=== PATIENT | female | born 1950 | race Caucasian/White ===

== ENCOUNTER → 2016-11-07 | Outpatient (CLI) | payer BC ==
[~2016-11-07] MED LIST: ASP81CT PO; CALC-80 PO; CHOL10003 PO; ESTR0.5T PO; FEXO1TAB42 PO; IBUP-15 PO; MAGN100T3 PO; MNTL10T PO; MTP25TSR PO; MULT1CAP27 PO; NAPR220T76 PO; NF-ESOM40C PO; PARO10TA21 PO; TRIGOSAMINE PO
--- NOTE | 2016-11-07 20:26 | Diagnostic Imaging Report ---
Bilateral screening mammogram The current study was also evaluated with a Computer Aided Detection (CAD) system. Indication: Screening. No current complaints stated on the questionnaire. COMPARISON: 12/07/13. FINDINGS: The breasts are composed of scattered fibroglandular densities. There are occasional benign-appearing calcifications. Allowing for technique and positional differences, no suspicious change is seen. IMPRESSION: No significant change. ACR BI-RADS Category 2: Benign findings. Result letter will be mailed to the patient. Note: At least 10% of breast cancer is not imaged by mammography. Dictated by: Dictated on workstation # [id number]
== END ==
LOC: RAD 07:18
PROVIDERS: ATTEND Obstetrics & Gynecology Gynecology
DX: Z12.31 Encounter for screening mammogram for malignant neoplasm of breast (principal)
CPT/HCPCS: 77067

== ENCOUNTER → 2017-01-28 | Outpatient (CLI) | payer BC ==
--- NOTE | 2017-01-28 15:48 | Diagnostic Imaging Report ---
Renal ultrasound. INDICATION: Hematuria. FINDINGS: The right kidney is 10.6 cm and the left kidney is 9.8 cm in length. There is no hydroureteronephrosis or focal lesion seen. The urinary bladder appears unremarkable. IMPRESSION: Unremarkable exam. Dictated by: Dictated on workstation # [id number]
== END ==
LOC: RAD 08:39
PROVIDERS: ATTEND Obstetrics & Gynecology Gynecology
DX: R31.1 Benign essential microscopic hematuria (principal)
CPT/HCPCS: 76770

== ENCOUNTER 2017-04-23 15:04 | Outpatient (CLI) | payer BC ==
[~2017-04-23] VITALS: Ht 167.6 cm; Wt 80.7 kg
[~2017-04-23 15:04] MED LIST changes: +methylPREDNISolone 80 MG/ML (DEPO MEDROL) VIAL ONE
[2017-04-23 15:17] VITALS: BP 136/59
[2017-04-23 15:42] VITALS: BP 146/69
--- NOTE | 2017-04-27 16:33 | OPERATIVE REPORT ---
DATE OF SERVICE: 04/23/2017 DIAGNOSIS: Lumbar radiculopathy. PROCEDURE: Fluoroscopic guided interlaminar epidural steroid injection. PROCEDURE IN DETAIL: After obtaining informed consent from the patient, the patient's chart was reviewed. The patient was then brought to the procedure room and placed in the prone position. A timeout was performed. The back was prepped with antiseptic solution and under fluoro guidance, the patient's lumbar spine was identified at the level of L4-L5. The L4-L5 vertebra was identified with fluoro guidance and approximately 2 mL of 1.5% lidocaine solution was used to anesthetize the skin directly down to the pedicle of the L4-L5 and under fluoroscopic guidance, the tract was anesthetized up to the interlaminar space and the ligamentum flavum. This needle was withdrawn. Then, a 20-gauge 3.5 inch Tuohy needle was then directed following the same tract that was anesthetized with the spinal needle. Using loss of resistance, the epidural space was identified and then the syringe was switched for contrast solution which was injected, approximately 1 mL. After secondary confirmation of epidural access, another syringe was placed and 80 mg of Depo-Medrol was injected. The Tuohy needle was then flushed out with approximately 2 mL of the normal saline used from the loss of resistance syringe. Band-Aids were applied to all the procedure sites. The patient tolerated the procedure well and was taken to the recovery room in stable condition. COMPLICATIONS: None. Job ID: [id number] DocumentID: [id number] Dictated Date: 04/27/2017 09:31:55 Field Operations Farm Manager Date: 04/27/2017 16:32:03 Dictated By: MADELYN CASSIDY DO
--- NOTE | 2017-05-06 11:24 | HISTORY AND PHYSICAL ---
DATE OF SERVICE: 04/23/2017 CHIEF COMPLAINT: Low back pain. HISTORY OF PRESENT ILLNESS: A 66-year-old female presents today with gradual onset low back pain, located mostly in the right side. Pain is made worse by sleeping, walking and sitting. The patient presents today for LESI of L4-L5. ALLERGIES: CODEINE. CURRENT MEDICATIONS: Vitamin D3 2000 units daily, Cetirizine 10 mg 1 tablet daily, Meloxicam 15 mg daily, omeprazole 40 mg daily, Restasis 0.05% 2 drops in both eyes b.i.d., tramadol 50 mg 1 tablet by mouth p.r.n., 50 mcg 1 puff inhale p.r.n., Lovastatin hydrochlorothiazide 50/12.5 mg 1 tablet by mouth daily, fish oil 120/180 mg 1 tablet by mouth b.i.d., magnesium oxide 300 mg 1 tablet by mouth daily, Simbrinza 1/0.2% drops both eyes b.i.d. REVIEW OF SYSTEMS: HEENT: Negative for hearing loss, hoarseness. GENITOURINARY: Declined. ENDOCRINE: Denies any excessive thirst, increased urination or temperature intolerance. CONSTITUTIONAL: Denies any weight loss, fever or decreased appetite. RESPIRATION: Denies cough or shortness of breath. MUSCULOSKELETAL: Positive for joint pain. Positive for osteoporosis. NEUROLOGICAL: Positive for numbness and tingling in the lower extremity. PHYSICAL EXAMINATION: VITAL SIGNS: Height 66 inches, weight 154. GENERAL: The patient is a female, appearing healthy, well groomed, well nourished, without distress or deformity. HEENT: Extraocular muscles are intact. EXTREMITIES: Upper and lower extremities are normal in color, touch and texture. Lumbar spine range of motion has decreased and the patient states that the last injection left her with some pain, has infrequent episodes of left hip pain. MUSCULOSKELETAL: Major joint groups were examined and found to be within normal limits. Reflexes of patellar and Achilles were bilaterally within normal limits. Sensory: No hypo or hyperesthesia. IMPRESSION: 1. Lumbar degenerative disc disease. 2. Lumbar radiculopathy. TREATMENT AND PLAN: Continue with L4-5 intralaminar epidural steroid injection. Job ID: [id number] DocumentID: [id number] Dictated Date: 05/05/2017 14:37:48 Enrollment Services Vice President Date: 05/05/2017 16:56:30 Dictated By: MADELYN CASSIDY DO
== END 2017-04-23 15:44 | disposition home or self-care (01) ==
LOC: CARD 15:04
PROVIDERS: ATTEND Pain Medicine Interventional Pain Medicine
DX: M54.16 Radiculopathy, lumbar region (principal); M81.0 Age-related osteoporosis without current pathological fracture; Z79.899 Other long term (current) drug therapy
CPT/HCPCS: 62323

== ENCOUNTER → 2017-08-25 | Outpatient (CLI) | payer BC ==
[~2017-08-25] MED LIST changes: +GADOBUTROL 7.5 MMOL/7.5 ML (GADAVIST) VIAL IV ONE; -methylPREDNISolone 80 MG/ML (DEPO MEDROL) VIAL ONE
--- NOTE | 2017-08-25 18:21 | Diagnostic Imaging Report ---
PROCEDURE: MR imaging of the brain with and without contrast. TECHNIQUE: Multiplanar, multisequence MR imaging of the brain was performed with and without contrast. INDICATION: Intracranial mass diagnosed in September 2014. Study is performed for followup. COMPARISON: Correlation is made with prior MRI brain from 06/20/2016. FINDINGS: No diffusion restriction is identified. The normal expected flow-voids within the carotid siphons are seen. Mild periventricular white matter changes are similar to prior exam. No acute intra-axial or extra-axial hemorrhage is identified. The corpus callosum is unremarkable. The sella and parasellar structures are unremarkable. The enhancing nodule noted along the left posterior parietal convexity appears stable at 7 mm and remains most compatible with a meningioma. No new enhancing lesion is identified. IMPRESSION: Stable pre-and postcontrast MRI of the brain when compared with prior study from 06/20/2016. The extra-axial enhancing lesion along the left posterior parietal convexity is stable and remains most suggestive of a meningioma. Dictated by: Dictated on workstation # [id number]
== END ==
LOC: RAD 16:41
PROVIDERS: ATTEND Family Medicine
DX: D32.0 Benign neoplasm of cerebral meninges (principal)
CPT/HCPCS: 70553

== ENCOUNTER → 2017-09-10 | Outpatient (CLI) | payer BC ==
[~2017-09-10] MED LIST changes: -GADOBUTROL 7.5 MMOL/7.5 ML (GADAVIST) VIAL IV ONE
--- NOTE | 2017-09-10 13:28 | Diagnostic Imaging Report ---
INDICATION: Osteoporosis. COMPARISON: No prior studies are available for comparison. FINDINGS: Bone mineral analysis of the lumbar spine and both hips was performed. Bone mineral density of the lumbar spine L2-L4 is 0.759 with T score of -3.7. Bone mineral density of left femoral neck 0.695 with T score -2.5. Bone mineral density right femoral neck 0.664 with T score -2.7. IMPRESSION: Osteoporosis of the lumbar spine as well as the right femoral neck. There is borderline osteopenia/osteoporosis of the left femoral neck. Dictated by: Dictated on workstation # [id number]
== END ==
LOC: RAD 08:38
PROVIDERS: ATTEND Family Medicine
DX: M81.0 Age-related osteoporosis without current pathological fracture (principal); E55.9 Vitamin D deficiency, unspecified; M85.80 Other specified disorders of bone density and structure, unspecified site
CPT/HCPCS: 77080

== ENCOUNTER → 2018-02-04 | Outpatient (CLI) | payer BC ==
--- NOTE | 2018-02-04 18:52 | Diagnostic Imaging Report ---
INDICATION: Routine screening. Comparison is made with prior mammogram from 11/07/2016 and 12/07/2013. 2-D and 3-D bilateral screening mammography was performed with CAD. The current study was also evaluated with a Computer Aided Detection (CAD) system. FINDINGS: Scattered fibroglandular densities are identified bilaterally. The overall breast parenchymal pattern appears stable. No dominant mass or malignant-appearing microcalcifications are seen. The axillae are unremarkable. IMPRESSION: No mammographic features suspicious for malignancy are identified. ACR BI-RADS Category 1: Negative. Result letter will be mailed to the patient. Note: At least 10% of breast cancer is not imaged by mammography. Dictated by: Dictated on workstation # [id number]
== END ==
LOC: RAD 07:53
PROVIDERS: ATTEND Nurse Practitioner
DX: Z12.31 Encounter for screening mammogram for malignant neoplasm of breast (principal)
CPT/HCPCS: 77067

== ENCOUNTER → 2018-02-04 | Outpatient (CLI) | payer BC | LOC: CARD 07:56 | PROVIDERS: ATTEND Family Medicine | DX: R01.1 Cardiac murmur, unspecified (principal) | CPT/HCPCS: 93306 ==

== ENCOUNTER → 2018-04-23 | Outpatient (CLI) | payer BC ==
[~2018-04-23] VITALS: Ht 167.6 cm; Wt 80.7 kg
[~2018-04-23] MED LIST changes: +DENOSUMAB 60 MG/1 ML (PROLIA) SQ ONE
[2018-04-23 15:25] VITALS: BP 128/77
== END ==
LOC: SDC 14:23
PROVIDERS: ATTEND Family Medicine
DX: M81.0 Age-related osteoporosis without current pathological fracture (principal)
CPT/HCPCS: 96372

== ENCOUNTER → 2018-08-26 | Outpatient (CLI) | payer MEDICARE, OTHER ==
[~2018-08-26] MED LIST changes: -DENOSUMAB 60 MG/1 ML (PROLIA) SQ ONE; +GADOBUTROL 7.5 MMOL/7.5 ML (GADAVIST) VIAL IV ONE
[2018-08-26 09:41] LABS: BUN/CREATININE RATIO 20; CREATININE SERUM 0.83 MG/DL (0.60-1.30); GFR ESTIMATED > 60
--- NOTE | 2018-08-26 11:40 | Diagnostic Imaging Report ---
PROCEDURE: MR imaging of the brain with and without contrast. TECHNIQUE: Multiplanar, multisequence MR imaging of the brain was performed with and without contrast. INDICATION: Followup meningioma. COMPARISON: Correlation is made with prior MRI of the brain from 08/25/2017. FINDINGS: Previously noted enhancing nodule along the left posterior parietal convexity is stable at approximately 6-7 mm. No new area of enhancement is seen. Ventricles and sulci are within normal limits. Corpus callosum is unremarkable. The sella and parasellar structures are unremarkable. No acute intra-axial or extra-axial hemorrhage is detected. No diffusion restriction is identified. Normal expected flow-voids within the carotid siphons are seen. IMPRESSION: Stable MRI of the brain with and without contrast since examination one year earlier. Extra-axial enhancing nodule along the left posterior parietal convexity is stable and remains most suggestive of a meningioma. Dictated by: Dictated on workstation # [id number]
== END ==
LOC: RAD 09:11
PROVIDERS: ATTEND Family Medicine
DX: D32.9 Benign neoplasm of meninges, unspecified (principal)
CPT/HCPCS: 36415; 70553; 82565; 84520

== ENCOUNTER → 2018-12-01 | Outpatient (CLI) | payer MEDICARE, OTHER ==
[~2018-12-01] VITALS: Ht 167.6 cm; Wt 80.7 kg
[~2018-12-01] MED LIST changes: +DENOSUMAB 60 MG/1 ML (PROLIA) SQ SCH; -GADOBUTROL 7.5 MMOL/7.5 ML (GADAVIST) VIAL IV ONE
[2018-12-01 11:10] VITALS: BP 99/57
== END ==
LOC: SDC 11:01
PROVIDERS: ATTEND Family Medicine
DX: M81.0 Age-related osteoporosis without current pathological fracture (principal)
CPT/HCPCS: 96372

== ENCOUNTER → 2019-05-24 | Outpatient (CLI) | payer MEDICARE, OTHER ==
[~2019-05-24] MED LIST changes: +DENOSUMAB 60 MG/1 ML (PROLIA) SQ ONE; -DENOSUMAB 60 MG/1 ML (PROLIA) SQ SCH
[2019-05-24 10:06] VITALS: BP 127/53
== END ==
LOC: SDC 10:01
PROVIDERS: ATTEND Family Medicine
DX: M81.0 Age-related osteoporosis without current pathological fracture (principal)
CPT/HCPCS: 96372

== ENCOUNTER → 2019-08-24 | Outpatient (CLI) | payer MEDICARE, OTHER ==
[~2019-08-24] MED LIST changes: -DENOSUMAB 60 MG/1 ML (PROLIA) SQ ONE; +GADOBUTROL 10 MMOL/10 ML (GADAVIST) VIAL IV ONE
--- NOTE | 2019-08-24 09:09 | Diagnostic Imaging Report ---
CLINICAL INDICATION: Patient with meningioma. Follow-up exam. EXAM: MRI of the brain performed without and with 7 cc of Gadavist IV contrast. Sequences include axial DWI, ADC map, axial gradient echo, axial T2, axial FLAIR, axial T1, axial T1 post IV contrast, coronal T1 fat-sat post IV contrast, and sagittal T1 post IV contrast. COMPARISON: MRI of the brain performed without and with IV contrast dated 08/26/2018. FINDINGS: Stable 6 mm dural-based avidly enhancing nodular lesion involving the high left parietal convexity region near the vertex most likely representing meningioma. There are no other areas of abnormal IV contrast enhancement. There is no evidence of acute cerebral infarct, intracranial hemorrhage, or gross mass effect. The brain parenchymal volume appears appropriate for patient's age. Again seen focal patchy areas of high T2 signal white matter changes involving both cerebral hemispheres, likely representing chronic small vessel ischemic disease. There is normal bojorquez-white matter distinction. There is no significant midline shift or herniation. The kiana of Nino vascular structures show no gross abnormality as visualized. The pituitary gland, sella, and suprasellar regions are unremarkable as visualized. There is no evidence of hydrocephalus. The basal cisterns are unremarkable. The skull, extracranial soft tissue, and orbits are unremarkable. There is minimal mucosal thickening involving the ethmoid sinus. Temporal bones show no significant abnormality. IMPRESSION: 1: Stable 6 mm meningioma seen along the high left parietal convexity region of the vertex. 2: Stable mild age related brain parenchymal changes with no acute intracranial finding. 3: Mild ethmoid sinus disease. Dictated by: Dictated on workstation # [id number]
== END ==
LOC: RAD 08:04
PROVIDERS: ATTEND Family Medicine
DX: D32.0 Benign neoplasm of cerebral meninges (principal); J32.2 Chronic ethmoidal sinusitis; G93.89 Other specified disorders of brain
CPT/HCPCS: 70553

== ENCOUNTER 2019-11-23 10:31 | Outpatient (CLI) | payer MEDICARE, OTHER ==
[~2019-11-23 10:31] MED LIST changes: -GADOBUTROL 10 MMOL/10 ML (GADAVIST) VIAL IV ONE
[2019-11-23] MEDS ORDERED: DENOSUMAB 60 MG/1 ML (PROLIA) SQ NR (11:07)
[2019-11-23 11:25] VITALS: BP 121/61
== END 2019-11-23 11:28 | disposition home or self-care (01) ==
LOC: SDC 10:31
PROVIDERS: ATTEND Family Medicine
DX: M81.0 Age-related osteoporosis without current pathological fracture (principal)
CPT/HCPCS: 96372

== ENCOUNTER → 2020-03-27 | Outpatient (CLI) | payer MEDICARE, OTHER ==
--- NOTE | 2020-03-27 09:54 | Diagnostic Imaging Report ---
INDICATION: Postmenopausal state, osteoporosis COMPARISON: 09/10/2017 FINDINGS: AP Spine L1-L4: [BMD (g/cm2): 0.939] [T-Score: -2.2] [Z-Score: -0.9] [BMD Previous: 0.759] [BMD % Change: 23.7] LT Hip Neck: [BMD (g/cm2): 0.714] [T-Score: -2.3] [Z-Score: -1.0] LT Hip Total: [BMD (g/cm2):.700] [T-Score:-2.4] [Z-Score: -1.3] [BMD Previous: 0.641] [BMD % Change: 9.2] RT Hip Neck: [BMD (g/cm2):0.673] [T-Score:-2.6] [Z-Score:-1.3] RT Hip Total: [BMD (g/cm2):0.696] [T-score:-2.5] [Z-Score:-1.4] [BMD Previous:0.654] [BMD % Change:6.4] *Indicates significant change from prior examination based on 95% confidence level. World Health Organization criteria for BMD interpretation classify patients as Normal (T-score at or above -1.0), Osteopenic (T-score between -1.0 and -2.5) or Osteoporotic (T-score at or below -2.5). LIMITATIONS AND MODIFICATION: None. FRACTURE RISK (FRAX SCORE): The ten year probability of (%): Major Osteoporotic Fracture: [15.1] Hip Fracture: [3.8] IMPRESSION: 1. Osteoporosis. 2. No significant change in bone mineral density since prior examination. 3. See below National Osteoporosis Foundation guidelines on when to potentially initiate pharmacologic therapy. Based on the National Osteoporosis Foundation Guidelines, pharmacologic treatment should be initiated in any of the following, unless clinical conditions suggest otherwise: * Any patient with prior fragility fracture of the hip or vertebrae. A spine fracture indicates 5X risk for subsequent spine fracture and 2X risk for subsequent hip fracture. * Osteoporosis (T-score <-2.5). * Postmenopausal women and men age 50 and older with low bone mass/osteopenia (T-score between -1.0 and -2.5) by DXA and 10-year major osteoporotic fracture greater than 20% or a 10-year probability of hip fracture greater than 3%. These fracture risks are supplied above in the FRAX score, if applicable. * Clinician judgement and/or patient preferences may indicate treatment for people with 10-year fracture probabilities above or below these levels. Dictated by: Dictated on workstation # [id number]
== END ==
LOC: RAD 08:55
PROVIDERS: ATTEND Family Medicine
DX: M81.0 Age-related osteoporosis without current pathological fracture (principal); Z78.0 Asymptomatic menopausal state
CPT/HCPCS: 77080

== ENCOUNTER → 2020-06-20 | Outpatient (CLI) | payer MEDICARE, OTHER ==
[~2020-06-20] VITALS: Ht 167 cm; Wt 72.7 kg
[~2020-06-20] MED LIST changes: +DENOSUMAB 60 MG/1 ML (PROLIA) SQ SCH
[2020-06-20 10:10] VITALS: BP 126/65
== END ==
LOC: SDC 09:29
PROVIDERS: ATTEND Family Medicine
DX: M81.0 Age-related osteoporosis without current pathological fracture (principal)
CPT/HCPCS: 96372

== ENCOUNTER → 2020-10-23 | Outpatient (CLI) | payer MEDICARE, OTHER ==
[~2020-10-23] MED LIST changes: -DENOSUMAB 60 MG/1 ML (PROLIA) SQ SCH; +GADOBUTROL 10 MMOL/10 ML (GADAVIST) VIAL IV ONE; +GADOBUTROL 7.5 MMOL/7.5 ML (GADAVIST) VIAL IV ONE
--- NOTE | 2020-10-23 11:54 | Diagnostic Imaging Report ---
PROCEDURE: MR imaging of the brain with and without contrast. TECHNIQUE: Multiplanar, multisequence MR imaging of the brain was performed with and without contrast. INDICATION: Meningioma follow-up. COMPARISON: MRI brain without and with IV contrast 08/24/2019. FINDINGS: Mild nonspecific T2 hyperintensities in the supratentorial white matter compatible with chronic small vessel ischemic change are stable. Extra-axial enhancing mass along the superior left parietal lobe continues to measure up to 0.6 cm. No abnormal signal in the adjacent parenchyma. No new abnormal intracranial signal or enhancement. No restricted water diffusion. No hemosiderin deposition or evidence of intracranial hemorrhage. Normal morphology including the major midline structures, sella, posterior fossa and cerebellar pontine angle. No hydrocephalus or extra-axial fluid collections. Normal intracranial flow voids. Postoperative changes in the globes. Mild mucosal thickening in the ethmoid sinuses is stable. The mastoids are clear. Normal bone marrow signal. IMPRESSION: 1. Stable 0.6 cm extra-axial enhancing mass consistent with a benign meningioma overlying the left parietal lobe. 2. Mild chronic small vessel ischemic change is unchanged. 3. Mild mucosal thickening in ethmoid sinuses is stable. No air-fluid levels. Dictated by: Dictated on workstation # [id number]
== END ==
LOC: RAD 10-10 09:30
PROVIDERS: ATTEND Family Medicine
DX: D32.9 Benign neoplasm of meninges, unspecified (principal)
CPT/HCPCS: 70553

== ENCOUNTER 2020-12-19 10:00 | Outpatient (CLI) | payer MEDICARE, OTHER ==
[~2020-12-19 10:00] MED LIST changes: -GADOBUTROL 10 MMOL/10 ML (GADAVIST) VIAL IV ONE; -GADOBUTROL 7.5 MMOL/7.5 ML (GADAVIST) VIAL IV ONE
[2020-12-19 10:15] VITALS: BP 142/69
[2020-12-19] MEDS ORDERED: DENOSUMAB 60 MG/1 ML (PROLIA) SQ SCH (10:30)
== END 2020-12-19 10:51 | disposition home or self-care (01) ==
LOC: SDC 10:00
PROVIDERS: ATTEND Family Medicine
DX: M81.0 Age-related osteoporosis without current pathological fracture (principal)
CPT/HCPCS: 96372

== ENCOUNTER 2021-08-01 12:09 | Inpatient (IN) | payer MEDICARE, OTHER ==
[~2021-08-01] VITALS: Ht 167.7 cm; Wt 71.2 kg
[2021-08-01] MEDS ORDERED: LACTATED RINGERS 1,000 ML IV SCH (12:45)
[2021-08-01 13:18] LABS: BASOPHILS # (AUTO) 0.1 10^3/uL (0.0-0.1); BASOPHILS % (AUTO) 1 % (0-10); EOSINOPHILS # (AUTO) 0.3 10^3/uL (0.0-0.3); EOSINOPHILS % (AUTO) 3 % (0-10); HEMATOCRIT 34 % (35-52); HEMOGLOBIN 11.4 g/dL (11.5-16.0); LYMPHOCYTES # (AUTO) 0.9 10^3/uL (1.0-4.0); LYMPHOCYTES % (AUTO) 11 % (12-44); MEAN CORPUSCULAR HEMOGLOBIN 30 pg (25-34); MEAN CORPUSCULAR HGB CONC 33 g/dL (32-36); MEAN CORPUSCULAR VOLUME 90 fL (80-99); MEAN PLATELET VOLUME 9.6 fL (9.0-12.2); MONOCYTES # (AUTO) 0.7 10^3/uL (0.0-1.0); MONOCYTES % (AUTO) 8 % (0-12); NEUTROPHILS # (AUTO) 6.2 10^3/uL (1.8-7.8); NEUTROPHILS % (AUTO) 76 % (42-75); PLATELET COUNT 299 10^3/uL (130-400); WHITE BLOOD COUNT 8.2 10^3/uL (4.3-11.0)
--- NOTE | 2021-08-01 13:22 | Diagnostic Imaging Report ---
INDICATION: Weakness. COMPARISON: 08/01/2015. TECHNIQUE: Single frontal radiograph of the chest dated 08/01/2021. FINDINGS: The cardiac silhouette is within normal limits in size. No significant pulmonary vascular congestion. The lungs are clear. No pleural effusion. No pneumothorax. No acute osseous abnormality. IMPRESSION: Stable examination without acute cardiopulmonary abnormality. Dictated by: Dictated on workstation # [id number]
--- NOTE | 2021-08-01 13:27 | ED GI ---
General Chief Complaint: Abdominal/GI Problems Stated Complaint: DEHYDRATION/BODYACHES/STOMACH PAIN/BACK PAIN/V/D Nursing Triage Note: PT AMB TO RM 5 WITH COMPLAINT OF DIARRHEA, ABD PAIN. STATES HAS BEEN SEEN AT [facility] TWICE THIS WEEK AND DIAGNOSED WITH UTI. HAD COVID 2 WEEKS AGO. Source of Information: Patient Exam Limitations: No Limitations History of Present Illness Date Seen by Provider: Aug 01, 2021 Time Seen by Provider: 13:27 Initial Comments To ER with epigastric pain over the past 4 days. She was seen at [facility] on 07/28/2021 when this started. They diagnosed her with urinary tract infection. The pain is primarily epigastric. Nothing made it better and nothing made it worse. She is had nausea and poor food intake because of it. 2 weeks ago she had a positive home Covid test and has seemingly recovered from that. She is been having nausea abdominal pain and diarrhea since Thursday. Timing/Duration: 3-4 Days Severity/Quality: Severe, Aching Location: Epigastric Radiation: No Radiation Activities at Onset: None Allergies and Home Medications Allergies Coded Allergies: IV Dye, Iodine Containing Contrast (Unverified Allergy, Mild, HIVES, 01/09/09) Patient Home Medication List Home Medication List Reviewed: Yes Aspirin (Aspirin 81 Mg Chew Tab) 81 Mg Chew, 81 MG PO DAILY, (Reported) Entered as Reported by: YVETTE HAGAN on 08/21/102001 Calcium Carbonate/Vitamin D3 (Calcium 600 + D Caplet) 1 Each Tablet, 2 EACH PO DAILY, (Reported) Entered as Reported by: YVETTE HAGAN on 08/21/101955 Cholecalciferol (Vitamin D) 1,000 Unit Tablet, 1,000 UNIT PO DAILY, (Reported) Entered as Reported by: YVETTE HAGAN on 08/21/101955 Esomeprazole Mag Trihydrate (Nexium) 40 Mg Capsule.dr, 40 MG PO DAILY, (Reported) Entered as Reported by: YVETTE HAGAN on 08/21/101955 Estradiol (Estradiol) 0.5 Mg Tablet, 0.5 MG PO DAILY, (Reported) Entered as Reported by: YVETTE HAGAN on 08/21/101955 Fexofenadine Hcl/Pseudoephedr (Dior-D 24 Hour Tablet) 1 Tab.sr .24 H Tab.sr.24h, 1 EACH PO DAILY, (Reported) Entered as Reported by: YVETTE HAGAN on 08/21/101955 Ibuprofen (Ibuprofen M) 200 Mg Tablet, 200 MG PO PRN, (Reported) Entered as Reported by: YVETTE HAGAN on 08/21/102001 Magnesium Amino Acid Chelate (Magnesium) 100 Mg Tablet, 100 MG PO DAILY, (Reported) Entered as Reported by: YVETTE HAGAN on 08/21/102001 Metoprolol Succinate (Toprol Xl) 25 Mg Tab, 25 MG PO DAILY, (Reported) Entered as Reported by: YVETTE HAGAN on 08/21/102001 Montelukast Sodium (Singulair 10 Mg) 10 Mg Tablet, 10 MG PO DAILY PRN, (Reported) Entered as Reported by: YVETTE HAGAN on 08/21/101955 Multivitamins (Multivitamins) 1 Each Capsule, 1 EACH PO DAILY, (Reported) Entered as Reported by: YVETTE HAGAN on 08/21/102001 Naproxen Sodium (Aleve) 220 Mg Tablet, 2 TAB PO DAILY, (Reported) Entered as Reported by: YVETTE HAGAN on 08/21/102001 Paroxetine Hcl (Paroxetine Hcl) 10 Mg Tablet, 10 MG PO DAILY, (Reported) Entered as Reported by: YVETTE HAGAN on 08/21/101955 [Trigosamine] , 2 TAB PO DAILY, (Reported) Entered as Reported by: YVETTE HAGAN on 08/21/102001 Review of Systems Review of Systems Constitutional: see HPI EENTM: No Symptoms Reported Respiratory: No Symptoms Reported Cardiovascular: No Symptoms Reported Gastrointestinal: See HPI, Abdominal Pain, Diarrhea, Nausea Genitourinary: No Symptoms Reported Musculoskeletal: no symptoms reported Skin: no symptoms reported Psychiatric/Neurological: No Symptoms Reported Endocrine: No Symptoms Reported Past Ccxrlol-Cislrc-Zjwcgs Hx Patient Social History Tobacco Use?: No Use of E-Cig and/or Vaping dev: No Substance use?: No Alcohol Use?: No Pt feels they are or have been: No Immunizations Up To Date Influenza Vaccine Up-to-Date: Yes; Up-to-Date First/Initial COVID19 Vaccinat: JULY 2020 Second COVID19 Vaccination [place]: AUGUST 2020 COVID19 Vaccine Regional Driver: [place] Past Medical History Reproductive Disorders: No Physical Exam Vital Signs Vital Signs - First Documented 08/01/21 12:22 Temp 36.3 Pulse 76 Resp 25 B/P (MAP) 125/69 (87) Pulse Ox 96 O2 Delivery Room Air Capillary Refill : Less Than 3 Seconds Height/Weight/BMI Height: 5'6.00" Weight: 178lbs. 0.0oz. 80.717203ec; 25.00 BMI Method: General Appearance: WD/WN, no apparent distress HEENT: PERRL/EOMI, normal ENT inspection Neck: non-tender, full range of motion Respiratory: no respiratory distress, no accessory muscle use Cardiovascular: regular rate, rhythm, no murmur Gastrointestinal: normal bowel sounds, soft, tenderness (Tenderness to p alpation) Extremities: normal range of motion, non-tender (GP for his) Neurologic/Psychiatric: alert, normal mood/affect, oriented x 3 Skin: normal color, warm/dry Progress/Results/Core Measures Results/Orders Lab Results Laboratory Tests Test 08/01/21 13:11 08/01/21 13:59 Range/Units White Blood Count 8.2 4.3-11.0 10^3/uL Red Blood Count 3.81 3.80-5.11 10^6/uL Hemoglobin 11.4 L 11.5-16.0 g/dL Hematocrit 34 L 35-52 % Mean Corpuscular Volume 90 80-99 fL Mean Corpuscular Hemoglobin 30 25-34 pg Mean Corpuscular Hemoglobin Concent 33 32-36 g/dL Red Cell Distribution Width 12.9 10.0-14.5 % Platelet Count 299 130-400 10^3/uL Mean Platelet Volume 9.6 9.0-12.2 fL Immature Granulocyte % (Auto) 1 % Neutrophils (%) (Auto) 76 H 42-75 % Lymphocytes (%) (Auto) 11 L 12-44 % Monocytes (%) (Auto) 8 0-12 % Eosinophils (%) (Auto) 3 0-10 % Basophils (%) (Auto) 1 0-10 % Neutrophils # (Auto) 6.2 1.8-7.8 10^3/uL Lymphocytes # (Auto) 0.9 L 1.0-4.0 10^3/uL Monocytes # (Auto) 0.7 0.0-1.0 10^3/uL Eosinophils # (Auto) 0.3 0.0-0.3 10^3/uL Basophils # (Auto) 0.1 0.0-0.1 10^3/uL Immature Granulocyte # (Auto) 0.1 0.0-0.1 10^3/uL Prothrombin Time 14.7 12.2-14.7 SEC INR Comment 1.1 0.8-1.4 Sodium Level 139 135-145 MMOL/L Potassium Level 3.3 L 3.6-5.0 MMOL/L Chloride Level 103 98-107 MMOL/L Carbon Dioxide Level 23 21-32 MMOL/L Anion Gap 13 5-14 MMOL/L Blood Urea Nitrogen 19 H 7-18 MG/DL Creatinine 1.07 0.60-1.30 MG/DL Estimat Glomerular Filtration Rate 56 BUN/Creatinine Ratio 18 Glucose Level 99 70-105 MG/DL Calcium Level 10.6 H 8.5-10.1 MG/DL Corrected Calcium 10.9 H 8.5-10.1 MG/DL Total Bilirubin 0.6 0.1-1.0 MG/DL Aspartate Amino Transf (AST/SGOT) 18 5-34 U/L Alanine Aminotransferase (ALT/SGPT) 20 0-55 U/L Alkaline Phosphatase 78 40-136 U/L C-Reactive Protein High Sensitivity 15.43 H 0.00-0.50 MG/DL Total Protein 7.1 6.4-8.2 GM/DL Albumin 3.6 3.2-4.5 GM/DL Lipase 24 8-78 U/L Urine Color YELLOW Urine Clarity CLEAR Urine pH 7.0 5-9 Urine Specific Traphill <=1.005 1.016-1.022 Urine Protein NEGATIVE NEGATIVE Urine Glucose (UA) NEGATIVE NEGATIVE Urine Ketones NEGATIVE NEGATIVE Urine Nitrite NEGATIVE NEGATIVE Urine Bilirubin NEGATIVE NEGATIVE Urine Urobilinogen 0.2 < = 1.0 MG/DL Urine Leukocyte Esterase 2+ H NEGATIVE Urine RBC (Auto) 1+ H NEGATIVE Urine RBC RARE /HPF Urine WBC 10-25 H /HPF Urine Squamous Epithelial Cells 5-10 /HPF Urine Crystals NONE /LPF Urine Bacteria FEW H /HPF Urine Casts NONE /LPF Urine Mucus NEGATIVE /LPF Urine Culture Indicated YES My Orders Orders - HAFSA FERNANDEZ [employer] Cbc With Automated Diff (08/01/21 12:37) Comprehensive Metabolic Panel (08/01/21 12:37) Ua Culture If Indicated (08/01/21 12:37) Ed Iv/Invasive Line Start (08/01/21 12:37) Chest 1 View, Ap/Pa Only (08/01/21 12:37) Hs C Reactive Protein (08/01/21 12:37) Lactated Ringers (Lr 1000 Ml Iv Solution (08/01/21 12:45) Lipase (08/01/21 12:37) Protime With Inr (08/01/21 12:37) Ct Abdomen/Pelvis Wo (08/01/21 13:27) Antacid Suspension (Mylanta Suspension (08/01/21 14:15) Lidocaine 2% Viscous 15 Ml (Xylocaine Vi (08/01/21 14:15) Urine Culture (08/01/21 13:59) Ceftriaxone 1 Gm Pre-Mix (Rocephin 1 Gm (08/01/21 14:15) Dipht,Pertuss(Acell),Tet Adult (Boostrix (08/01/21 14:30) Vital Signs/I&O 08/01/21 12:22 Temp 36.3 Pulse 76 Resp 25 B/P (MAP) 125/69 (87) Pulse Ox 96 O2 Delivery Room Air Blood Pressure Mean: 87 Departure Communication (Admissions) 1425-she states that her abdomen is feeling a little bit better today though she still rates the pain at 7 out of 10. She seems reliable person and I feel if this were a simple enteritis her pain should be that intense. Discussed with Dr. Claudio, I would worry about the possibility of a partial small bowel obstruction given her history of cholecystectomy and a partial hysterectomy. We will admit to Dr. Claudio, small bowel follow-through in the morning, Rocephin for UTI, Protonix for her GERD, Zofran as needed and fentanyl as needed. Family Conversation NAME: THU MCLAIN [facility] REC#: [id number] PT STATUS: REG ER : 1950 PHYSICIAN: HAFSA FERNANDEZ APRN ADMIT DATE: 08/01/21/ER Draft Date of Exam:08/01/21 CT ABDOMEN/PELVIS WO PROCEDURE: CT abdomen and pelvis without contrast. TECHNIQUE: Multiple contiguous axial images were obtained through the abdomen and pelvis without the use of intravenous contrast. Auto Exposure Controls were utilized during the CT exam to meet ALARA standards for radiation dose reduction. INDICATION: Epigastric pain. Diarrhea. COMPARISON: 01/08/2012. FINDINGS: The heart is unremarkable. The lung bases are clear. There is hepatic steatosis. The gallbladder surgically absent. The spleen, pancreas, adrenal glands, and kidneys have a normal appearance. There is no pathologically enlarged mesenteric or retroperitoneal adenopathy. Fluid-filled mildly dilated loops of small bowel are seen in the abdomen and pelvis. The appendix is visualized in the right lower quadrant and has a normal appearance. There is no free fluid or free air. No acute osseous abnormalities. Ureters and bladder are normal. There is no free air, loculated collection, or adenopathy in the pelvis. IMPRESSION: 1. Fluid-filled mildly dilated loops of small bowel in the abdomen and pelvis, which may represent enteritis versus early small bowel obstruction. No free fluid or free air. Recommend continued attention. 2. Hepatic steatosis. Dictated on workstation # [id number] Dict: 08/01/21 1403 Trans: 08/01/21 1412 CVB [id number] Interpreted by: IGNACIO RUGGIERO DO Electronically signed by: NAME: THU MCLAIN [facility] REC#: [id number] PT STATUS: REG ER : 1950 PHYSICIAN: HAFSA FERNANDEZ APRN ADMIT DATE: 08/01/21/ER Draft Date of Exam:08/01/21 CHEST 1 VIEW, AP/PA ONLY INDICATION: Weakness. COMPARISON: 08/01/2015. TECHNIQUE: Single frontal radiograph of the chest dated 08/01/2021. FINDINGS: The cardiac silhouette is within normal limits in size. No significant pulmonary vascular congestion. The lungs are clear. No pleural effusion. No pneumothorax. No acute osseous abnormality. IMPRESSION: Stable examination without acute cardiopulmonary abnormality. Dictated on workstation # [id number] Dict: 08/01/21 1318 Trans: 08/01/21 1322 SA [id number] Interpreted by: CRIS HART MD Electronically signed by: Impression Primary Impression: Partial small bowel obstruction Additional Impression: Urinary tract infection Disposition: ADMITTED INPATIENT Condition: Stable Admissions Decision to Admit Reason: Admit from ER (General) Decision to Admit/Date: Aug 01, 2021 Time/Decision to Admit Time: 14:26 Departure-Patient Inst. Referrals: LOBITO CARR MD (PCP/Family) Primary Care Physician HAFSA FERNANDEZ APRN Aug 01, 2021 13:27
[2021-08-01 13:30] LABS: ALBUMIN 3.6 GM/DL (3.2-4.5); POTASSIUM 3.3 MMOL/L (3.6-5.0)
[2021-08-01 13:31] LABS: CALCIUM 10.6 MG/DL (8.5-10.1)
[2021-08-01 13:33] LABS: INR 1.1 (0.8-1.4); PROTHROMBIN TIME PATIENT 14.7 SEC (12.2-14.7); TOTAL PROTEIN 7.1 GM/DL (6.4-8.2)
[2021-08-01 13:35] LABS: BILIRUBIN,TOTAL 0.6 MG/DL (0.1-1.0)
[2021-08-01 13:37] LABS: CREATININE SERUM 1.07 MG/DL (0.60-1.30)
[2021-08-01 14:05] LABS: BILIRUBIN,URINE NEGATIVE (NEGATIVE); CLARITY,URINE CLEAR; COLOR,URINE YELLOW; GLUCOSE, URINE (UA) NEGATIVE (NEGATIVE); KETONES,URINE NEGATIVE (NEGATIVE); LEUKOCYTE ESTERASE ,URINE 2+ (NEGATIVE); NITRITE,URINE NEGATIVE (NEGATIVE); PROTEIN,URINE NEGATIVE (NEGATIVE)
[2021-08-01 14:13] LABS: BACTERIA,URINE FEW /HPF; RBC,URINE RARE /HPF
--- NOTE | 2021-08-01 14:13 | Diagnostic Imaging Report ---
PROCEDURE: CT abdomen and pelvis without contrast. TECHNIQUE: Multiple contiguous axial images were obtained through the abdomen and pelvis without the use of intravenous contrast. Auto Exposure Controls were utilized during the CT exam to meet ALARA standards for radiation dose reduction. INDICATION: Epigastric pain. Diarrhea. COMPARISON: 01/08/2012. FINDINGS: The heart is unremarkable. The lung bases are clear. There is hepatic steatosis. The gallbladder surgically absent. The spleen, pancreas, adrenal glands, and kidneys have a normal appearance. There is no pathologically enlarged mesenteric or retroperitoneal adenopathy. Fluid-filled mildly dilated loops of small bowel are seen in the abdomen and pelvis. The appendix is visualized in the right lower quadrant and has a normal appearance. There is no free fluid or free air. No acute osseous abnormalities. Ureters and bladder are normal. There is no free air, loculated collection, or adenopathy in the pelvis. IMPRESSION: 1. Fluid-filled mildly dilated loops of small bowel in the abdomen and pelvis, which may represent enteritis versus early small bowel obstruction. No free fluid or free air. Recommend continued attention. 2. Hepatic steatosis. Dictated by: Dictated on workstation # [id number]
[2021-08-01] MEDS ORDERED: cefTRIAXone 1 GM PRE-MIX 50 ML IV ONE (14:15)
[2021-08-01] MEDS ORDERED: LIDOCAINE 2% VISCOUS 15 ML UDC PO ONE (14:15)
[2021-08-01] MEDS ORDERED: ANTACID SUSP 30 ML UDC (MYLANTA) PO ONE (14:15)
[2021-08-01] MEDS ORDERED: TETANUS,DIPTH,PERTUSS P/F (BOOSTRIX) 0.5 ML VIAL IM ONE (14:30)
--- NOTE | 2021-08-01 15:48 | History & Physical-Surgical ---
CLAUS PENNINGTON 08/01/21 1548: History of Present Illness History of Present Illness Reason for visit/HPI CC- abdominal pain and N/V HPI: 71 yo female with hx of GERD, HTN, glaucoma, and arthritis presented to the ER with severe abdominal pain, nausea, vomiting and diarrhea. Sx started Thursday night. She was seen at the [facility], where she was dx with a UTI and prescribed nitrofurantn. The sx continued, so she came to [place] ER today. The abdominal pain was epigastric, constant, sharp, and radiated to her back. Movement makes it worse (03/31). Pt reports not eating since Thursday, as the nausea and vomiting has lessened her appetite. Pt reports having chills, cold sweats, and has vomited 5 times since Thursday night. Pt denies fever, SOB, and CP at this time. Pt has hx of post-op ileus following a rectocele/cystocele repair. She also had an appt with cardiology today following a syncopal episode in May. It has been rescheduled. Date of Admission Aug 01, 2021 at 14:20 Date Seen by a Provider: Aug 01, 2021 Time Seen by a Provider: 14:35 I consulted on this patient on 08/01/21 15:39 Attending Physician Rachele Sal DO Admitting Physician Vanessa Park MD Consult Allergies and Home Medications Allergies Coded Allergies: Iodinated Contrast Media (Unverified Allergy, Mild, HIVES, 01/09/09) codeine (Verified Allergy, Unknown, rash, 08/01/21) Patient Home Medication List Brinzolamide/Brimonidine Tart (Simbrinza 1%-0.2% Eye Drops) 8 Ml Drops.susp, 1 DROP OP BID, (Reported) Entered as Reported by: MILANA MAY on 08/01/211808 Last Action: New Order Calcium Carbonate/Vitamin D3 (Calcium 600 + D Caplet) 1 Each Tablet, 2 EACH PO DAILY, (Reported) Entered as Reported by: YVETTE HAGAN on 08/21/101955 Last Action: Reviewed Cholecalciferol (Vitamin D3) (Vitamin D3) 50 Mcg Tablet, 50 MCG PO DAILY, (Reported) Entered as Reported by: MILANA MAY on 08/01/211808 Last Action: New Order Cyclosporine (Restasis Multidose) 5.5 Ml Drops, 1 DROP OP BID, (Reported) Entered as Reported by: MILANA MAY on 08/01/211808 Last Action: New Order Hydrochlorothiazide (Hydrochlorothiazide) 12.5 Mg Tablet, 12.5 MG PO DAILY, (Reported) Entered as Reported by: MILANA MAY on 08/01/211808 Last Action: New Order Losartan Potassium (Losartan Potassium) 50 Mg Tablet, 50 MG PO DAILY, (Reported) Entered as Reported by: MILANA MAY on 08/01/211808 Last Action: New Order Magnesium Oxide (Mag-Oxide) 200 Mg Tablet, 400 MG PO DAILY, (Reported) Entered as Reported by: MILANA MAY on 08/01/211808 Last Action: New Order Meloxicam (Meloxicam) 15 Mg Tablet, 15 MG PO DAILY, (Reported) Entered as Reported by: MILANA MAY on 08/01/211808 Last Action: New Order Multivitamins (Multivitamins) 1 Each Capsule, 1 EACH PO DAILY, (Reported) Entered as Reported by: YVETTE HAGAN on 08/21/102001 Last Action: Reviewed Omeprazole (Omeprazole) 40 Mg Capsule.dr, 40 MG PO HS, (Reported) Entered as Reported by: MILANA MAY on 08/01/211808 Last Action: New Order Tramadol HCl (Tramadol HCl) 50 Mg Tablet, 50 MG PO Q8H PRN for PAIN-MODERATE (5- 7), (Reported) Entered as Reported by: MILANA MAY on 08/01/211808 Last Action: New Order Discontinued Medications Aspirin (Aspirin 81 Mg Chew Tab) 81 Mg Chew, 81 MG PO DAILY, (Reported) Discontinued Reason: No Longer Taking Entered as Reported by: YVETTE HAGAN on 08/21/102001 Last Action: Discontinued Cholecalciferol (Vitamin D) 1,000 Unit Tablet, 1,000 UNIT PO DAILY, (Reported) Discontinued Reason: No Longer Taking Entered as Reported by: YVETTE HAGAN on 08/21/101955 Last Action: Discontinued Esomeprazole Mag Trihydrate (Nexium) 40 Mg Capsule.dr, 40 MG PO DAILY, (Reported) Discontinued Reason: No Longer Taking Entered as Reported by: YVETTE HAGAN on 08/21/101955 Last Action: Discontinued Estradiol (Estradiol) 0.5 Mg Tablet, 0.5 MG PO DAILY, (Reported) Discontinued Reason: No Longer Taking Entered as Reported by: YVETTE HAGAN on 08/21/101955 Last Action: Discontinued Fexofenadine Hcl/Pseudoephedr (Dior-D 24 Hour Tablet) 1 Tab.sr .24 H Tab.sr.24h, 1 EACH PO DAILY, (Reported) Discontinued Reason: No Longer Taking Entered as Reported by: YVETTE HAGAN on 08/21/101955 Last Action: Discontinued Ibuprofen (Ibuprofen M) 200 Mg Tablet, 200 MG PO PRN, (Reported) Discontinued Reason: No Longer Taking Entered as Reported by: YVETTE HAGAN on 08/21/102001 Last Action: Discontinued Magnesium Amino Acid Chelate (Magnesium) 100 Mg Tablet, 100 MG PO DAILY, (Reported) Discontinued Reason: No Longer Taking Entered as Reported by: YVETTE HAGAN on 08/21/102001 Last Action: Discontinued Metoprolol Succinate (Toprol Xl) 25 Mg Tab, 25 MG PO DAILY, (Reported) Discontinued Reason: No Longer Taking Entered as Reported by: YVETTE HAGAN on 08/21/102001 Last Action: Discontinued Montelukast Sodium (Singulair 10 Mg) 10 Mg Tablet, 10 MG PO DAILY PRN, (Reported) Discontinued Reason: No Longer Taking Entered as Reported by: YVETTE HAGAN on 08/21/101955 Last Action: Discontinued Naproxen Sodium (Aleve) 220 Mg Tablet, 2 TAB PO DAILY, (Reported) Discontinued Reason: No Longer Taking Entered as Reported by: YVETTE HAGAN on 08/21/102001 Last Action: Discontinued Paroxetine Hcl (Paroxetine Hcl) 10 Mg Tablet, 10 MG PO DAILY, (Reported) Discontinued Reason: No Longer Taking Entered as Reported by: YVETTE HAGAN on 08/21/101955 Last Action: Discontinued [Trigosamine] , 2 TAB PO DAILY, (Reported) Discontinued Reason: No Longer Taking Entered as Reported by: YVETTE HAGAN on 08/21/102001 Last Action: Discontinued Past Ugfxeuj-Xyvayu-Uyeylg Hx Patient Social History Tobacco Use?: No Use of E-Cig and/or Vaping dev: No Substance use?: No Alcohol Use?: No Pt feels they are or have been: No Immunizations Up To Date First/Initial COVID19 Vaccinat: JULY 2020 Second COVID19 Vaccination Pavan: AUGUST 2020 Current Status Advance Directives: No Primary Language: Nicaraguan Preferred Spoken Language: Nicaraguan Past Medical History Surgeries: Eye Surgery (eye stents for glaucoma; cataract surgery), Gallbladder, Hysterectomy, Rectal (rectocele and cystocele repair) Hypertension Gastroesophageal Reflux Arthritis Glaucoma Family Medical History Heart Disease (grandfather), Cancer (mother had leukemia) Review of Systems Constitutional: chills; No fever EENTM: No hearing loss, No blurred vision Respiratory: cough (slight cough); No short of breath Gastrointestinal: RUQ, LUQ, abdominal pain, diarrhea, loss of appetite, nausea, vomiting Genitourinary: No dysuria; frequency (urine showed UTI) Musculoskeletal: No joint pain, No muscle pain Skin: no symptoms reported Psychiatric/Neurological: Denies Headache, Denies Weakness Physical Exam Vital Signs Vital Signs - First Documented 08/01/21 12:22 Temp 36.3 Pulse 76 Resp 25 B/P (MAP) 125/69 (87) Pulse Ox 96 O2 Delivery Room Air Height, Weight, BMI Height: 5'6.00" Weight: 178lbs. 0.0oz. [id number]; 25.00 BMI Method: General Appearance: No Apparent Distress, WD/WN HEENT: PERRL/EOMI Neck: Normal Inspection, Supple Respiratory: Lungs Clear, Normal Breath Sounds, No Respiratory Distress Cardiovascular: Regular Rate, Rhythm, No Murmur Gastrointestinal: Soft, Distended, Tenderness (epigastric) Extremity: Normal Inspection, No Pedal Edema Neurologic/Psychiatric: Alert, Normal Mood/Affect Skin: Normal Color, Warm/Dry Data Review Labs Laboratory Tests 08/01/21 13:11: White Blood Count 8.2, Red Blood Count 3.81, Hemoglobin 11.4L, Hematocrit 34L, Mean Corpuscular Volume 90, Mean Corpuscular Hemoglobin 30, Mean Corpuscular Hemoglobin Concent 33, Red Cell Distribution Width 12.9, Platelet Count 299, Mean Platelet Volume 9.6, Immature Granulocyte % (Auto) 1, Neutrophils (%) (Auto) 76H, Lymphocytes (%) (Auto) 11L, Monocytes (%) (Auto) 8, Eosinophils (%) (Auto) 3, Basophils (%) (Auto) 1, Neutrophils # (Auto) 6.2, Lymphocytes # (Auto) 0.9L, Monocytes # (Auto) 0.7, Eosinophils # (Auto) 0.3, Basophils # (Auto) 0.1, Immature Granulocyte # (Auto) 0.1, Prothrombin Time 14.7, INR Comment 1.1, Sodium Level 139, Potassium Level 3.3L, Chloride Level 103, Carbon Dioxide Level 23, Anion Gap 13, Blood Urea Nitrogen 19H, Creatinine 1.07, Estimat Glomerular Filtration Rate 56, BUN/Creatinine Ratio 18, Glucose Level 99, Calcium Level 10.6H, Corrected Calcium 10.9H, Total Bilirubin 0.6, Aspartate Amino Transf (AST/SGOT) 18, Alanine Aminotransferase (ALT/SGPT) 20, Alkaline Phosphatase 78, C-Reactive Protein High Sensitivity 15.43H, Total Protein 7.1, Albumin 3.6, Lipase 24 08/01/21 13:59: Urine Color YELLOW, Urine Clarity CLEAR, Urine pH 7.0, Urine Specific [place] <=1.005, Urine Protein NEGATIVE, Urine Glucose (UA) NEGATIVE, Urine Ketones NEGATIVE, Urine Nitrite NEGATIVE, Urine Bilirubin NEGATIVE, Urine Urobilinogen 0.2, Urine Leukocyte Esterase 2+H, Urine RBC (Auto) 1+H, Urine RBC RARE, Urine WBC 10-25H, Urine Squamous Epithelial Cells 5-10, Urine Crystals NONE, Urine Bacteria FEWH, Urine Casts NONE, Urine Mucus NEGATIVE, Urine Culture Indicated YES Assessment/Plan Assessment/Plan Assessment/Plan Abdominal Pain N/V SBO vs enteritis GERD Pain control IVFs Small bowel follow through in the a.m. Continue Zofran and Omeprazole prn RACHELE SAL DO 08/01/212023: History of Present Illness History of Present Illness Reason for visit/HPI Chief complaint abdominal pain nausea and vomiting Patient is a 71-year-old female who presents to the emergency department with severe abdominal pain in the epigastric region nausea and vomiting and diarrhea. Patient states that her sector started Thursday night. She is gone to [facility] a couple times where she was diagnosed with a urinary tract infection and was given medications for it. Her symptoms continued. She is having multiple diarrhea stools per day. She is having constant sharp epigastric pain which was radiating to her back. She states that movement makes worse. Nothing really seems to make it better except for having a little bit of a bowel movement. She recently had Covid as well. She has no other complaints at this time she denies fever sweats chills shortness of breath or chest pain. Allergies and Home Medications Allergies Coded Allergies: Iodinated Contrast Media (Unverified Allergy, Mild, HIVES, 01/09/09) codeine (Verified Allergy, Unknown, rash, 08/01/21) Patient Home Medication List Home Medication List Reviewed: Yes Brinzolamide/Brimonidine Tart (Simbrinza 1%-0.2% Eye Drops) 8 Ml Drops.susp, 1 DROP OP BID, (Reported) Entered as Reported by: MILANA MAY on 08/01/211808 Last Action: New Order Calcium Carbonate/Vitamin D3 (Calcium 600 + D Caplet) 1 Each Tablet, 2 EACH PO DAILY, (Reported) Entered as Reported by: YVETTE HAGAN on 08/21/101955 Last Action: Reviewed Cholecalciferol (Vitamin D3) (Vitamin D3) 50 Mcg Tablet, 50 MCG PO DAILY, (Reported) Entered as Reported by: MILANA MAY on 08/01/211808 Last Action: New Order Cyclosporine (Restasis Multidose) 5.5 Ml Drops, 1 DROP OP BID, (Reported) Entered as Reported by: MILANA MAY on 08/01/211808 Last Action: New Order Hydrochlorothiazide (Hydrochlorothiazide) 12.5 Mg Tablet, 12.5 MG PO DAILY, (Reported) Entered as Reported by: MILANA MAY on 08/01/211808 Last Action: New Order Losartan Potassium (Losartan Potassium) 50 Mg Tablet, 50 MG PO DAILY, (Reported) Entered as Reported by: MILANA MAY on 08/01/211808 Last Action: New Order Magnesium Oxide (Mag-Oxide) 200 Mg Tablet, 400 MG PO DAILY, (Reported) Entered as Reported by: MILANA MAY on 08/01/211808 Last Action: New Order Meloxicam (Meloxicam) 15 Mg Tablet, 15 MG PO DAILY, (Reported) Entered as Reported by: MILANA MAY on 08/01/211808 Last Action: New Order Multivitamins (Multivitamins) 1 Each Capsule, 1 EACH PO DAILY, (Reported) Entered as Reported by: YVETTE HAGAN on 08/21/102001 Last Action: Reviewed Omeprazole (Omeprazole) 40 Mg Capsule.dr, 40 MG PO HS, (Reported) Entered as Reported by: MILANA MAY on 08/01/211808 Last Action: New Order Tramadol HCl (Tramadol HCl) 50 Mg Tablet, 50 MG PO Q8H PRN for PAIN-MODERATE (5- 7), (Reported) Entered as Reported by: MILANA MAY on 08/01/211808 Last Action: New Order Discontinued Medications Aspirin (Aspirin 81 Mg Chew Tab) 81 Mg Chew, 81 MG PO DAILY, (Reported) Discontinued Reason: No Longer Taking Entered as Reported by: YVETTE HAGAN on 08/21/102001 Last Action: Discontinued Cholecalciferol (Vitamin D) 1,000 Unit Tablet, 1,000 UNIT PO DAILY, (Reported) Discontinued Reason: No Longer Taking Entered as Reported by: YVETTE HAGAN on 08/21/101955 Last Action: Discontinued Esomeprazole Mag Trihydrate (Nexium) 40 Mg Capsule.dr, 40 MG PO DAILY, (Reported) Discontinued Reason: No Longer Taking Entered as Reported by: YVETTE HAGAN on 08/21/101955 Last Action: Discontinued Estradiol (Estradiol) 0.5 Mg Tablet, 0.5 MG PO DAILY, (Reported) Discontinued Reason: No Longer Taking Entered as Reported by: YVETTE HAGAN on 08/21/101955 Last Action: Discontinued Fexofenadine Hcl/Pseudoephedr (Dior-D 24 Hour Tablet) 1 Tab.sr .24 H Tab.sr.24h, 1 EACH PO DAILY, (Reported) Discontinued Reason: No Longer Taking Entered as Reported by: YVETTE HAGAN on 08/21/101955 Last Action: Discontinued Ibuprofen (Ibuprofen M) 200 Mg Tablet, 200 MG PO PRN, (Reported) Discontinued Reason: No Longer Taking Entered as Reported by: YVETTE HAGAN on 08/21/102001 Last Action: Discontinued Magnesium Amino Acid Chelate (Magnesium) 100 Mg Tablet, 100 MG PO DAILY, (Reported) Discontinued Reason: No Longer Taking Entered as Reported by: YVETTE HAGAN on 08/21/102001 Last Action: Discontinued Metoprolol Succinate (Toprol Xl) 25 Mg Tab, 25 MG PO DAILY, (Reported) Discontinued Reason: No Longer Taking Entered as Reported by: YVETTE HAGAN on 08/21/102001 Last Action: Discontinued Montelukast Sodium (Singulair 10 Mg) 10 Mg Tablet, 10 MG PO DAILY PRN, (Reported) Discontinued Reason: No Longer Taking Entered as Reported by: YVETTE HAGAN on 08/21/101955 Last Action: Discontinued Naproxen Sodium (Aleve) 220 Mg Tablet, 2 TAB PO DAILY, (Reported) Discontinued Reason: No Longer Taking Entered as Reported by: YVETTE HAGAN on 08/21/102001 Last Action: Discontinued Paroxetine Hcl (Paroxetine Hcl) 10 Mg Tablet, 10 MG PO DAILY, (Reported) Discontinued Reason: No Longer Taking Entered as Reported by: YVETTE HAGAN on 08/21/101955 Last Action: Discontinued [Trigosamine] , 2 TAB PO DAILY, (Reported) Discontinued Reason: No Longer Taking Entered as Reported by: YVETTE HAGAN on 08/21/102001 Last Action: Discontinued Past Vehfihf-Zhnmnf-Rzlpbu Hx Past Medical History Surgeries: Eye Surgery (eye stents for glaucoma; cataract surgery), Gallbladder, Hysterectomy, Rectal (rectocele and cystocele repair) Hypertension Gastroesophageal Reflux Arthritis Glaucoma Family Medical History Reviewed Nursing Family Hx Heart Disease (grandfather), Cancer (mother had leukemia) Review of Systems Constitutional: chills; No fever EENTM: No hearing loss, No blurred vision Respiratory: cough (slight cough); No short of breath Gastrointestinal: abdominal pain, diarrhea, loss of appetite, nausea Genitourinary: frequency (urine showed UTI) Musculoskeletal: No joint pain, No muscle pain Psychiatric/Neurological: Denies Headache, Denies Weakness All Other Systems Reviewed Negative Unless Noted: Yes (Negative excepted noted.) Physical Exam General Appearance: No Apparent Distress, WD/WN HEENT: PERRL/EOMI, Normal ENT Inspection Neck: Normal Inspection Respiratory: Chest Non Tender, No Accessory Muscle Use, No Respiratory Distress Cardiovascular: Regular Rate, Rhythm, No JVD Gastrointestinal: Soft, Distended (Minimal), Tenderness (epigastric) Rectal: Deferred Back: No CVA Tenderness, No Vertebral Tenderness Extremity: Normal Inspection, Non Tender Neurologic/Psychiatric: Alert, Oriented x3, Normal Mood/Affect Skin: Normal Color, Warm/Dry Lymphatic: No Adenopathy Assessment/Plan Assessment/Plan Admission Diagonsis Epigastric abdominal pain Nausea and vomiting Small bowel obstruction versus enteritis GERD Admission Status: Observation Assessment/Plan Epigastric abdominal pain Nausea and vomiting Small bowel obstruction versus enteritis GERD Patient admitted for observation, pain control, IV fluids, small bowel follow- through in the morning to evaluate for small bowel obstruction, continue antiemetic and omeprazole Supervisory-Addendum Brief Verification & Attestation Participated in pt care: history, MDM, physical Personally performed: exam, history, MDM, supervision of care Care discussed with: Medical Student Procedures: n/a Results interpretation: Verified all documentation Verification and Attestation of Medical Student E/M Service A medical student performed and documented this service in my presence. I reviewed and verified all information documented by the medical student and made modifications to such information, when appropriate. I personally performed the physical exam and medical decision making. Rachele Sal, Aug 01, 2021,20:31 CLAUS PENNINGTON Aug 01, 2021 15:48 RACHELE SAL DO Aug 01, 2021 20:24
[2021-08-01] MEDS ORDERED: ONDANSETRON 4 MG/2 ML (SDV) Z0FRAN IV PRN (16:00)
[2021-08-01] MEDS ORDERED: CATHETER FLUSH 10 ML SYR IV PRN (16:00)
[2021-08-01 16:23] VITALS: BP 134/74
[2021-08-01] MEDS: LACTATED RINGERS 1,000 ML IV SCH ×2 (16:24→23:34)
[2021-08-01] MEDS: fentaNYL INJ 100 MCG/2 ML AMP IV PRN ×2 (16:33→22:23)
[2021-08-01] MEDS ORDERED: OMEP40CA6 PO (18:09)
[2021-08-01] MEDS ORDERED: MAGN200T8 PO (18:09)
[2021-08-01] MEDS ORDERED: TRM50T PO (18:09)
[2021-08-01] MEDS ORDERED: LOSA50TA63 PO (18:09)
[2021-08-01] MEDS ORDERED: CYCL5.5D OP (18:09)
[2021-08-01] MEDS ORDERED: BRIN8DRO OU (18:09)
[2021-08-01] MEDS ORDERED: CHOL200059 PO (18:09)
[2021-08-01] MEDS ORDERED: MELO15TA39 PO (18:09)
[2021-08-01] MEDS ORDERED: HYDR12.56 PO (18:09)
[2021-08-01 19:30] VITALS: BP 117/74
[2021-08-01 23:57] VITALS: BP 105/64
[2021-08-02 04:10] VITALS: BP 121/67
[2021-08-02 06:06] LABS: BASOPHILS % (AUTO) 1 % (0-10); EOSINOPHILS # (AUTO) 0.2 10^3/uL (0.0-0.3); EOSINOPHILS % (AUTO) 4 % (0-10); HEMATOCRIT 31 % (35-52); HEMOGLOBIN 10.2 g/dL (11.5-16.0); LYMPHOCYTES # (AUTO) 1.4 10^3/uL (1.0-4.0); LYMPHOCYTES % (AUTO) 21 % (12-44); MEAN CORPUSCULAR HEMOGLOBIN 30 pg (25-34); MEAN CORPUSCULAR HGB CONC 33 g/dL (32-36); MEAN CORPUSCULAR VOLUME 89 fL (80-99); MEAN PLATELET VOLUME 9.4 fL (9.0-12.2); MONOCYTES # (AUTO) 0.6 10^3/uL (0.0-1.0); MONOCYTES % (AUTO) 9 % (0-12); NEUTROPHILS # (AUTO) 4.3 10^3/uL (1.8-7.8); NEUTROPHILS % (AUTO) 65 % (42-75); PLATELET COUNT 272 10^3/uL (130-400); WHITE BLOOD COUNT 6.6 10^3/uL (4.3-11.0)
[2021-08-02 06:25] LABS: ALBUMIN 3.1 GM/DL (3.2-4.5); POTASSIUM 3.1 MMOL/L (3.6-5.0)
[2021-08-02 06:26] LABS: CALCIUM 10.1 MG/DL (8.5-10.1)
[2021-08-02 06:27] LABS: TOTAL PROTEIN 6.1 GM/DL (6.4-8.2)
[2021-08-02 06:29] LABS: BILIRUBIN,TOTAL 0.4 MG/DL (0.1-1.0)
[2021-08-02 06:31] LABS: CREATININE SERUM 0.97 MG/DL (0.60-1.30)
[2021-08-02] MEDS: LACTATED RINGERS 1,000 ML IV SCH ×3 (07:20→23:26)
--- NOTE | 2021-08-02 07:22 | Progress Note - Surgery ---
CLAUS PENNINGTON 08/02/21721: Subjective Date Seen by a Provider: Aug 02, 2021 Time Seen by a Provider: 07:00 Subjective/Events-last exam Pt is 71 yo female awaiting small bowel follow through this morning. Pt reports not feeling well. She was up most of the night with diarrhea (liquid, no solids). Pt is nauseous and feels like she might vomit. Pt has passed a little bit of gas. Her abdominal pain and tenderness has improved. Currently NPO, but did have some broth, jello and amharic ice yesterday. She reports little bit of a cough. Pt denies CP, SOB, and fever at this time. She feels generally weak, hasn't eaten substantially since Thursday. Review of Systems General: Fatigue, Malaise HEENT: No Head Aches, No Visual Changes Pulmonary: No Dyspnea; Cough Cardiovascular: No: Chest Pain, Palpitations Gastrointestinal: Nausea, Abdominal Pain, Diarrhea Genitourinary: No Incontinence, No Hematuria Musculoskeletal: No: neck pain, leg pain Neurological: No: Weakness, Change in speech Focused Exam Respiratory: Lungs Clear, Normal Breath Sounds, No Respiratory Distress Cardiovascular: Regular Rate, Rhythm, No Murmur Peripheral Pulses: 3+ Radial Pulses (R), 3+ Radial Pulses (L) Skin: normal color, warm/dry Objective Exam Vital Signs Date Time Temp Pulse Resp B/P (MAP) Pulse Ox O2 Delivery O2 Flow Rate FiO2 08/02/21 04:10 36.9 70 18 121/67 (85) 98 Room Air 08/01/21 23:57 36.9 61 18 105/64 (78) 97 Room Air 08/01/21 20:15 Room Air 08/01/21 19:30 36.2 74 18 117/74 (88) 97 Room Air 08/01/21 16:23 36.2 79 18 134/74 (94) 98 Room Air 08/01/21 16:00 Room Air 08/01/21 15:44 81 25 136/61 97 Room Air 08/01/21 12:22 36.3 76 25 125/69 (87) 96 Room Air I & O 08/02/21 07:00 Intake Total 2800 ml Output Total 1800 ml Balance 1000 ml Capillary Refill : Less Than 3 Seconds General Appearance: No Apparent Distress, WD/WN HEENT: PERRL/EOMI Neck: Normal Inspection Respiratory: Lungs Clear, No Accessory Muscle Use, No Respiratory Distress Cardiovascular: Regular Rate, Rhythm, No Murmur Peripheral Pulses: 3+ Dorsalis Pedis (R), 3+ Left Dors-Pedis (L), 3+ Radial Pulses (R), 3+ Radial Pulses (L) Gastrointestinal: soft, distended (less than yesterday, however), tenderness (Less tenderness than yesterday, now focused in lower abd) Extremity: Normal Inspection, No Pedal Edema Neurologic/Psychiatric: Alert, Oriented x3, Normal Mood/Affect Skin: Normal Color, Warm/Dry Lymphatic: No Adenopathy Results Lab Laboratory Tests 08/01/21 13:11: White Blood Count 8.2, Red Blood Count 3.81, Hemoglobin 11.4L, Hematocrit 34L, Mean Corpuscular Volume 90, Mean Corpuscular Hemoglobin 30, Mean Corpuscular Hemoglobin Concent 33, Red Cell Distribution Width 12.9, Platelet Count 299, Mean Platelet Volume 9.6, Immature Granulocyte % (Auto) 1, Neutrophils (%) (Auto) 76H, Lymphocytes (%) (Auto) 11L, Monocytes (%) (Auto) 8, Eosinophils (%) (Auto) 3, Basophils (%) (Auto) 1, Neutrophils # (Auto) 6.2, Lymphocytes # (Auto) 0.9L, Monocytes # (Auto) 0.7, Eosinophils # (Auto) 0.3, Basophils # (Auto) 0.1, Immature Granulocyte # (Auto) 0.1, Prothrombin Time 14.7, INR Comment 1.1, Sodium Level 139, Potassium Level 3.3L, Chloride Level 103, Carbon Dioxide Level 23, Anion Gap 13, Blood Urea Nitrogen 19H, Creatinine 1.07, Estimat Glomerular Filtration Rate 56, BUN/Creatinine Ratio 18, Glucose Level 99, Calcium Level 10.6H, Corrected Calcium 10.9H, Total Bilirubin 0.6, Aspartate Amino Transf (AST/SGOT) 18, Alanine Aminotransferase (ALT/SGPT) 20, Alkaline Phosphatase 78, C-Reactive Protein High Sensitivity 15.43H, Total Protein 7.1, Albumin 3.6, Lipase 24 08/01/21 13:59: Urine Color YELLOW, Urine Clarity CLEAR, Urine pH 7.0, Urine Specific [place] <=1.005, Urine Protein NEGATIVE, Urine Glucose (UA) NEGATIVE, Urine Ketones NEGATIVE, Urine Nitrite NEGATIVE, Urine Bilirubin NEGATIVE, Urine Urobilinogen 0.2, Urine Leukocyte Esterase 2+H, Urine RBC (Auto) 1+H, Urine RBC RARE, Urine WBC 10-25H, Urine Squamous Epithelial Cells 5-10, Urine Crystals NONE, Urine Bacteria FEWH, Urine Casts NONE, Urine Mucus NEGATIVE, Urine Culture Indicated YES 08/02/21 05:55: White Blood Count 6.6, Red Blood Count 3.43L, Hemoglobin 10.2L, Hematocrit 31L, Mean Corpuscular Volume 89, Mean Corpuscular Hemoglobin 30, Mean Corpuscular Hemoglobin Concent 33, Red Cell Distribution Width 12.9, Platelet Count 272, Mean Platelet Volume 9.4, Immature Granulocyte % (Auto) 1, Neutrophils (%) (Auto) 65, Lymphocytes (%) (Auto) 21, Monocytes (%) (Auto) 9, Eosinophils (%) (Auto) 4, Basophils (%) (Auto) 1, Neutrophils # (Auto) 4.3, Lymphocytes # (Auto) 1.4, Monocytes # (Auto) 0.6, Eosinophils # (Auto) 0.2, Basophils # (Auto) 0.0, Immature Granulocyte # (Auto) 0.1, Sodium Level 143, Potassium Level 3.1L, Chloride Level 108H, Carbon Dioxide Level 23, Anion Gap 12, Blood Urea Nitrogen 14, Creatinine 0.97, Estimat Glomerular Filtration Rate 63, BUN/Creatinine Ratio 14, Glucose Level 96, Calcium Level 10.1, Corrected Calcium 10.8H, Total Bilirubin 0.4, Aspartate Amino Transf (AST/SGOT) 20, Alanine Aminotransferase (ALT/SGPT) 16, Alkaline Phosphatase 65, Total Protein 6.1L, Albumin 3.1L Assessment/Plan Assessment/Plan Assessment/Plan Epigastric abdominal pain Nausea and vomiting Small bowel obstruction versus enteritis GERD Small bowel follow-through this a.m. Pain control IV fluids Continue antiemetic and omeprazole RACHELE CLAUDIO DO 08/02/21 0916: Subjective Subjective/Events-last exam Multiple liquid stools. Epigastric abdominal pain better than yesterday. Having lots of nausea. Feels weak. Denies fever sweats chills shortness of breath or chest pain. Small bowel follow through this morning. Objective Exam General Appearance: No Apparent Distress, WD/WN HEENT: PERRL/EOMI, Normal ENT Inspection Neck: Normal Inspection, Non Tender Respiratory: Chest Non Tender, No Accessory Muscle Use, No Respiratory Distress Cardiovascular: Regular Rate, Rhythm, No JVD Gastrointestinal: soft, distended (minimal), tenderness (minimal epigastric pain) Extremity: Normal Inspection Neurologic/Psychiatric: Alert, Oriented x3, Normal Mood/Affect Skin: Normal Color, Warm/Dry Lymphatic: No Adenopathy Assessment/Plan Assessment/Plan Assessment/Plan Epigastric abdominal pain Nausea and vomiting Small bowel obstruction versus enteritis GERD Small bowel follow-through this a.m. Pain control IV fluids Continue antiemetic and omeprazole Supervisory-Addendum Brief Verification & Attestation Participated in pt care: history, MDM, physical Personally performed: exam, history, MDM, supervision of care Care discussed with: Medical Student Procedures: n/a Results interpretation: Verified all documentation Verification and Attestation of Medical Student E/M Service A medical student performed and documented this service in my presence. I reviewed and verified all information documented by the medical student and made modifications to such information, when appropriate. I personally performed the physical exam and medical decision making. Rachele Claudio, Aug 02, 2021,09:18 CLAUS PENNINGTON Aug 02, 2021 07:22 RACHELE CLAUDIO DO Aug 02, 2021 09:16
[2021-08-02 08:00] VITALS: BP 112/67
[2021-08-02] MEDS ORDERED: DIATRIZOATE MEGLUM/SODIUM 37% 120 ML (GASTROGRAFIN) PO ONE (08:15)
[2021-08-02] MEDS: PANTOPRAZOLE 40 MG (PROTONIX) VIAL IV SCH (10:39)
[2021-08-02] MEDS: cefTRIAXone 1 GM IV (PRE-MIX) 50 ML IV SCH (10:39)
--- NOTE | 2021-08-02 11:35 | Diagnostic Imaging Report ---
INDICATION: Enteritis versus partial small bowel obstruction. Correlation is made with CT study performed one day earlier. The principal scientist radiograph does show some gaseous distended small bowel loops however this appears improved when compared with the CT principal scientist radiograph from one day earlier. Patient was given 120 mL's of Gastrografin contrast mixed in 120 mL's of water by mouth. Initial radiograph does show contrast within the stomach with prompt emptying into proximal small bowel loops. There was progression of contrast through the small bowel. Contrast did reach the right colon at 2 hours. While there is some mild mildly dilated small bowel loops in left abdomen, no complete obstruction is seen. Mucosal fold pattern is unremarkable. IMPRESSION: Improved bowel gas pattern since CT one day earlier. There is no evidence of a complete small bowel obstruction. Contrast did reach the right colon at 2 hours. Dictated by: Dictated on workstation # [id number]
[2021-08-02 12:00] VITALS: BP 109/65
[2021-08-02] MEDS ORDERED: CALC500T64 PO (12:20)
[2021-08-02] MEDS ORDERED: CRAN1TAB4 PO (12:20)
[2021-08-02] MEDS ORDERED: PSYL3.4P5 PO (12:20)
[2021-08-02] MEDS ORDERED: LACT1CAP72 PO (12:20)
[2021-08-02] MEDS ORDERED: ONDA-106 PO (12:20)
[2021-08-02] MEDS ORDERED: CYCL1DRO OU (12:20)
[2021-08-02] MEDS ORDERED: FAMO40TA6 PO (12:20)
[2021-08-02] MEDS ORDERED: NITR-65 PO (12:20)
[2021-08-02] MEDS ORDERED: TURM500C4 PO (12:20)
[2021-08-02] MEDS ORDERED: MULT-567 PO (12:20)
[2021-08-02 17:00] VITALS: BP 145/71
[2021-08-02 21:00] VITALS: BP 153/76
[2021-08-03] VITALS: BP 115/59
[2021-08-03 04:00] VITALS: BP 134/62
[2021-08-03] MEDS: LACTATED RINGERS 1,000 ML IV SCH ×3 (07:24→23:40)
[2021-08-03 07:45] VITALS: BP 136/61
--- NOTE | 2021-08-03 08:37 | Progress Note - Surgery ---
[facility] 08/03/21 0837: Subjective Date Seen by a Provider: Aug 03, 2021 Time Seen by a Provider: 08:37 Subjective/Events-last exam Patient remains afebrile, with no acute events overnight Patient reports overall improvement but continues to have watery diarrhea Recently traveled to [place] and flew back to the [facility] on the . Shortly after began developing symptoms of abdominal pain and diarrhea Urine culture revealed no growth Contrast was seen in the right colon at 2 hours with improved bowel gas pattern Review of Systems General: No Chills, No Other (fevers) Pulmonary: No Dyspnea, No Cough Cardiovascular: No: Chest Pain, Palpitations Gastrointestinal: Diarrhea; No: Abdominal Pain Objective Exam Vital Signs Date Time Temp Pulse Resp B/P (MAP) Pulse Ox O2 Delivery O2 Flow Rate FiO2 08/03/21 07:45 36.3 55 18 136/61 (86) 97 Room Air 08/03/21 04:00 36.0 59 17 134/62 (86) 96 Room Air 08/03/21 00:00 36.3 59 18 115/59 (77) 97 Room Air 08/02/21 21:00 37.4 77 18 153/76 (101) 97 Room Air 08/02/21 20:50 97 Room Air 08/02/21 17:00 37.0 73 19 145/71 (95) 99 Room Air 08/02/21 12:00 36.4 68 16 109/65 (80) 98 Room Air I & O 08/03/21 07:00 Intake Total 4680 ml Output Total 2200 ml Balance 2480 ml Capillary Refill : Less Than 3 Seconds General Appearance: No Apparent Distress, WD/WN HEENT: PERRL/EOMI, Pharynx Normal Neck: Normal Inspection, Non Tender Respiratory: Chest Non Tender, No Accessory Muscle Use, No Respiratory Distress Cardiovascular: Regular Rate, Rhythm, No Edema, No Murmur Peripheral Pulses: 2+ Radial Pulses (R), 2+ Radial Pulses (L) Gastrointestinal: non tender, soft Extremity: Normal Inspection, Non Tender, No Calf Tenderness Neurologic/Psychiatric: Alert, Oriented x3, Normal Mood/Affect Skin: Normal Color, Warm/Dry Lymphatic: No Adenopathy Results Lab Microbiology 08/01/21 Urine Culture - Final, Complete NO GROWTH Radiology [facility], [place] NAME: THU MCLAIN [facility] REC#: [id number] PT STATUS: ADM IN : 1950 PHYSICIAN: RACHELE SAL DO ADMIT DATE: 08/01/21 Signed Date of Exam:08/02/21 SMALL BOWEL STUDY ONLY INDICATION: Enteritis versus partial small bowel obstruction. Correlation is made with CT study performed one day earlier. The tele tech radiograph does show some gaseous distended small bowel loops however this appears improved when compared with the CT tele tech radiograph from one day earlier. Patient was given 120 mL's of Gastrografin contrast mixed in 120 mL's of water by mouth. Initial radiograph does show contrast within the stomach with prompt emptying into proximal small bowel loops. There was progression of contrast through the small bowel. Contrast did reach the right colon at 2 hours. While there is some mild mildly dilated small bowel loops in left abdomen, no complete obstruction is seen. Mucosal fold pattern is unremarkable. IMPRESSION: Improved bowel gas pattern since CT one day earlier. There is no evidence of a complete small bowel obstruction. Contrast did reach the right colon at 2 hours. Dictated by: Dictated on workstation # [id number] Dict: 08/02/21 1128 Trans: 08/02/21 1546 [facility] [id number] Interpreted by: ELMA GARZA MD Electronically signed by: ELMA GARZA MD 08/02/21 1546 Assessment/Plan Assessment/Plan Assessment/Plan Epigastric abdominal pain Recent international travel Nausea and vomiting Small bowel obstruction versus enteritis GERD Stool study Pain control as needed IV fluids Continue antiemetic and omeprazole ESTELLE MARTINEZ DO 08/03/21 1147: Subjective Time Seen by a Provider: 11:03 Subjective/Events-last exam Pt seen and examined, is having diarrhea but denies blood. Tolerating clears and denies abd pain. Review of Systems General: No Chills Pulmonary: No Dyspnea, No Cough Cardiovascular: No: Chest Pain, Palpitations Gastrointestinal: Diarrhea; No: Nausea, Vomiting, Abdominal Pain Objective Exam General Appearance: No Apparent Distress, WD/WN HEENT: PERRL/EOMI Respiratory: Chest Non Tender, Lungs Clear, Normal Breath Sounds, No Accessory Muscle Use, No Respiratory Distress Cardiovascular: Regular Rate, Rhythm, No Murmur Gastrointestinal: non tender, soft; No distended Neurologic/Psychiatric: Alert, Oriented x3, Normal Mood/Affect Assessment/Plan Assessment/Plan Assessment/Plan Epigastric abdominal pain - resolved Recent international travel - most likely travelers enteritis and diarrhea Nausea and vomiting - resolved Pain control as needed, IV fluids, Continue antiemetic and omeprazole. Will increase to soft diet. Supervisory-Addendum Brief Verification & Attestation Participated in pt care: history, MDM, physical Personally performed: exam, history, MDM, supervision of care Care discussed with: Medical Student Procedures: n/a Verification and Attestation of Medical Student E/M Service A medical student performed and documented this service. I then reviewed and verified all information documented by the medical student and made modifications to such information, when appropriate. I personally performed a physical exam, medical decision making and then discussed any differences between the notes and made revisions as necessary to create one note. Estelle Martinez , 08/03/21 , 11:47 [facility]OL[facility] GARC[facility] Aug 03, 2021 08:37 ESTELLE MARTINEZ DO Aug 03, 2021 11:47
[2021-08-03] MEDS: PANTOPRAZOLE 40 MG (PROTONIX) VIAL IV SCH (08:48)
[2021-08-03] MEDS: cefTRIAXone 1 GM IV (PRE-MIX) 50 ML IV SCH (09:13)
[2021-08-03 11:36] VITALS: BP 155/67
[2021-08-03 16:19] VITALS: BP 136/67
[2021-08-03 19:34] VITALS: BP 134/63
[2021-08-04 00:20] VITALS: BP 137/70
[2021-08-04 04:05] VITALS: BP 132/72
[2021-08-04] MEDS: LACTATED RINGERS 1,000 ML IV SCH (07:48)
[2021-08-04 07:55] VITALS: BP 118/69
[2021-08-04] MEDS ORDERED: PANTOPRAZOLE 40 MG (PROTONIX) TAB PO SCH (09:00)
[2021-08-04] MEDS ORDERED: KCL 20 MEQ TAB (K-DUR) PO NR (09:00)
--- NOTE | 2021-08-04 09:38 | Progress Note - Surgery ---
THALIA WALLACE 08/04/21 0938: Subjective Date Seen by a Provider: Aug 04, 2021 Time Seen by a Provider: 09:00 Subjective/Events-last exam Pt says that her diarrhea is resolved since last night, and feels back to baseline besides being tired. Denies abdominal pain, N/V, or blood in the stool. Review of Systems General: No Chills; Other (no fever) HEENT: No Eye Pain, No Ear Pain Pulmonary: No Dyspnea, No Pleuritic Chest Pain Cardiovascular: No: Chest Pain, Palpitations Gastrointestinal: No: Nausea, Vomiting, Abdominal Pain, Diarrhea, Constipation, Hematochezia Genitourinary: No Dysuria, No Hematuria Musculoskeletal: No: neck pain, back pain Neurological: No: Change in speech, Confusion Objective Exam Vital Signs Date Time Temp Pulse Resp B/P (MAP) Pulse Ox O2 Delivery O2 Flow Rate FiO2 08/04/21 07:55 36.9 60 16 118/69 (85) 98 Room Air 08/04/21 04:05 36.4 57 18 132/72 (92) 98 Room Air 08/04/21 00:20 36.6 58 18 137/70 (92) 97 Room Air 08/03/21 20:55 97 Room Air 08/03/21 19:34 36.5 77 18 134/63 (86) 99 Room Air 08/03/21 16:19 36.0 76 18 136/67 (90) 98 Room Air 08/03/21 11:36 37.1 67 20 155/67 (96) 98 Room Air I & O 08/04/21 07:00 Intake Total 4198 ml Output Total 2600 ml Balance 1598 ml Capillary Refill : Less Than 3 Seconds General Appearance: No Apparent Distress, WD/WN HEENT: PERRL/EOMI; No Photophobia Neck: Full Range of Motion, Non Tender Respiratory: Chest Non Tender, Lungs Clear, Normal Breath Sounds, No Accessory Muscle Use, No Respiratory Distress Cardiovascular: Regular Rate, Rhythm, No Murmur Peripheral Pulses: 2+ Radial Pulses (R), 2+ Radial Pulses (L) Gastrointestinal: non tender, soft; No distended, No guarding Extremity: Non Tender, No Calf Tenderness Neurologic/Psychiatric: Alert, Oriented x3, Normal Mood/Affect Skin: Normal Color, Warm/Dry Lymphatic: No Adenopathy Results Lab Microbiology 08/01/21 Urine Culture - Final, Complete NO GROWTH Assessment/Plan Assessment/Plan Assessment/Plan Epigastric abdominal pain - resolved Recent international travel - most likely enteritis, resolved Nausea and vomiting - resolved Tolerating soft diet well, D/C possibly today NOMI CLAUDIO DO 08/04/21 1257: Subjective Subjective/Events-last exam Tolerating diet. wanting to go home. No diarrhea today. No abdominal pain. Denies n/v fever sweats chills shortness of breath or chest pain. Objective Exam General Appearance: No Apparent Distress, WD/WN HEENT: PERRL/EOMI Neck: Full Range of Motion, Non Tender Respiratory: Chest Non Tender, No Accessory Muscle Use, No Respiratory Distress Cardiovascular: Regular Rate, Rhythm, No JVD Gastrointestinal: non tender, soft; No distended, No guarding Extremity: Non Tender, No Calf Tenderness Neurologic/Psychiatric: Alert, Oriented x3, Normal Mood/Affect Skin: Normal Color, Warm/Dry Lymphatic: No Adenopathy Assessment/Plan Assessment/Plan Assessment/Plan Epigastric abdominal pain - resolved Diarrhea-resolved SBO vs enteritis, likely enteritis now resolved Nausea and vomiting - resolved Hypokalemia-replaced Tolerating diet No pain or diarrhea will dc home with follow up with her pcp. Supervisory-Addendum Brief Verification & Attestation Participated in pt care: history, MDM, physical Personally performed: exam, history, MDM, supervision of care Care discussed with: Medical Student Procedures: n/a Results interpretation: Verified all documentation Verification and Attestation of Medical Student E/M Service A medical student performed and documented this service in my presence. I reviewed and verified all information documented by the medical student and made modifications to such information, when appropriate. I personally performed the physical exam and medical decision making. Nomi Claudio, Aug 04, 2021,12:57 THALIA WALLACE Aug 04, 2021 09:38 NOMI CLAUDIO DO Aug 04, 2021 12:57
--- NOTE | 2021-08-04 12:54 | Discharge Inst-Simple/Standard ---
Discharge Inst-Standard Patient Instructions/Follow Up Plan of Care/Instructions/FU: Follow up Dr. Park in next 2 weeks. Activity as Tolerated: Yes Discharge Diet: Regular Diet Other Inst to Patient Follow up Appt: Make appointment for [address] Park Symptoms to Report: Appetite Changes, Extremity Discoloration, Numbness/Tingling, Swelling Increased, Bleeding Excessive, Eyesight Changes, Pain Increased, Urine Color Change, Constipation(Persistent), Fever over 101 degree F, Pain/Pressure in chest, Urinating Difficulty, Cough Up/Vomit Blood, Heart Beat Irreg/Pounding, Pain/Pressure in jaw, Vaginal Bleeding Increase, Cramps in feet or legs, Lightheadedness, Pain/Pressure in shoulder, Diarrhea(Persistent), Memory Changes Suddenly, Questions/Concerns, Weight gain consecutive days, Dizziness/Fainting, Nausea/Vomiting, Shortness of Breath, Weight gain over 2 pounds If questions or concerns contact your physician Or seek help at emergency department. RACHELE SAL DO Aug 04, 2021 12:54
[2021-08-04 15:00] VITALS: BP 118/69
== END 2021-08-04 15:03 | disposition home or self-care (01) | DRG 392 ==
LOC: EDUNIT# 12:09 → ER 12:11 → 4TH 14:20
PROVIDERS: ADMIT Surgery; ATTEND Surgery
PROC: 8E0ZXY6 Isolation (ICD-10-PCS; principal; 2021-08-01)
DX: K52.9 Noninfective gastroenteritis and colitis, unspecified (principal); N39.0 Urinary tract infection, site not specified; K21.9 Gastro-esophageal reflux disease without esophagitis; I10 Essential (primary) hypertension; E87.6 Hypokalemia; M19.91 Primary osteoarthritis, unspecified site; Z86.16 Personal history of COVID-19; Z88.5 Allergy status to narcotic agent; Z91.041 Radiographic dye allergy status; Z79.82 Long term (current) use of aspirin
CPT/HCPCS: 36415; 71045; 74176; 74250; 80053; 81000; 83690; 85025; 85610; 86141; 87088

== ENCOUNTER → 2021-08-13 | Outpatient (CLI) | payer MEDICARE, OTHER ==
[~2021-08-13] MED LIST changes: +BRIN8DRO OU; +CALC500T64 PO; +CHOL200059 PO; +CRAN1TAB4 PO; +CYCL1DRO OU; +CYCL5.5D OP; +DENOSUMAB 60 MG/1 ML (PROLIA) SQ SCH; +FAMO40TA6 PO; +HYDR12.56 PO; +LACT1CAP72 PO; +LOSA50TA63 PO; +MAGN200T8 PO; +MELO15TA39 PO; +MULT-567 PO; +NITR-65 PO; +OMEP40CA6 PO; +ONDA-106 PO; +PSYL3.4P5 PO; +TRM50T PO; +TURM500C4 PO
[2021-08-13 11:34] VITALS: BP 149/77
== END ==
LOC: SDC 09:48
PROVIDERS: ATTEND Family Medicine
DX: M81.0 Age-related osteoporosis without current pathological fracture (principal)
CPT/HCPCS: 96372

== ENCOUNTER → 2021-08-30 | Outpatient (CLI) | payer MEDICARE, OTHER ==
[~2021-08-30] MED LIST changes: -DENOSUMAB 60 MG/1 ML (PROLIA) SQ SCH
--- NOTE | 2021-08-30 10:09 | Diagnostic Imaging Report ---
CLINICAL INDICATION: Patient has abnormal area in the brain. Recheck. EXAM: MRI of the brain performed without IV contrast. Sequences include sagittal T1, axial T2, axial T1, axial flair, axial gradient echo, axial gradient echo DWI, and ADC map. COMPARISON: MRI of the brain with and without contrast dated 10/23/2020. FINDINGS: There is no evidence of acute cerebral infarct, intracranial hemorrhage, or gross mass effect. Previously seen 6 mm dural based enhancing mass in the high parasagittal left parietal region is not as well seen on this exam compared to the prior study, since no IV contrast was administered. There is a nodular area in the region which appears similar in size measuring 6 mm and likely represents stable appearance of the meningioma. The brain parenchymal volume appears appropriate for patient's age. There is no significant change to the multiple focal patchy areas of high T2 signal white matter changes involving both cerebral hemispheres and periventricular regions likely related to chronic small vessel ischemic disease. There is normal bojorquez-white matter distinction. There is no significant midline shift or herniation. The [place] vascular structures show no gross abnormality as visualized. The pituitary gland, sella, and suprasellar regions are unremarkable as visualized. There is no evidence of hydrocephalus. The basal cisterns are unremarkable. The skull, extracranial soft tissue, and orbits are unremarkable. The paranasal sinuses are unremarkable. Temporal bones show no significant abnormality. IMPRESSION: 1: Stable MRI of the brain with no acute intracranial process. 2: Grossly stable appearing suspected meningioma in the high left parietal region, as visualized. Dictated by: Dictated on workstation # [id number]
== END ==
LOC: RAD 08:45
PROVIDERS: ATTEND Family Medicine
DX: D32.9 Benign neoplasm of meninges, unspecified (principal)
CPT/HCPCS: 70551

== ENCOUNTER → 2022-05-19 | Outpatient (CLI) | payer MEDICARE, OTHER ==
--- NOTE | 2022-05-19 14:58 | Diagnostic Imaging Report ---
INDICATION: Right hip pain. FINDINGS: 2 views. There is a battery generator overlying the right hip obscuring some detail. Femoral head appears in good alignment with the acetabulum. Articulating surfaces appear smooth with relatively good preservation of the joint space. There are no fractures demonstrated. No soft tissue calcifications are demonstrated. The SI joint shows mild bony beaking along the inferior one-third. IMPRESSION: Mild arthritic changes noted at the SI joint and hip. Dictated by: Dictated on workstation # [id number]
--- NOTE | 2022-05-19 15:04 | Diagnostic Imaging Report ---
INDICATION: Right knee pain. FINDINGS: 3 views. The joint spaces are well-maintained. Articulating surfaces are smooth. There are no hypertrophic osteophytes. No chondrocalcinosis or loose bodies. IMPRESSION: Normal right knee. Dictated by: Dictated on workstation # [id number]
--- NOTE | 2022-05-19 16:01 | Diagnostic Imaging Report ---
INDICATION: Back pain, no known injury. AP and lateral views of the lumbar spine are obtained. Lumbar vertebrae are normal in height and alignment. There is no fracture or compression deformity. There is generalized demineralization. There is mild degenerative change with osteophyte formation at L3-L4. Stimulator device overlying the right side of the pelvis is noted with tip in the presacral space. IMPRESSION: Chronic changes, as above, with no acute abnormality of the lumbar spine. Dictated by: Dictated on workstation # [id number]
== END ==
LOC: RAD 10:02
PROVIDERS: ATTEND Registered Nurse
DX: M47.816 Spondylosis without myelopathy or radiculopathy, lumbar region (principal); M25.78 Osteophyte, vertebrae; M25.561 Pain in right knee; M53.3 Sacrococcygeal disorders, not elsewhere classified; M16.11 Unilateral primary osteoarthritis, right hip; Z96.82 Presence of neurostimulator; M54.10 Radiculopathy, site unspecified
CPT/HCPCS: 72110; 73502; 73562

== ENCOUNTER → 2022-05-22 | Outpatient (CLI) | payer MEDICARE, OTHER ==
[~2022-05-22] MED LIST changes: +DENOSUMAB 60 MG/1 ML (PROLIA) SQ ONE
[2022-05-22 13:00] VITALS: BP 115/61
== END ==
LOC: SDC 12:51
PROVIDERS: ATTEND Family Medicine
DX: M81.0 Age-related osteoporosis without current pathological fracture (principal)
CPT/HCPCS: 96372

== ENCOUNTER → 2023-02-10 | Outpatient (CLI) | payer MEDICARE, OTHER ==
[~2023-02-10] VITALS: Wt 71.2 kg
[~2023-02-10] MED LIST changes: -DENOSUMAB 60 MG/1 ML (PROLIA) SQ ONE; +DENOSUMAB 60 MG/1 ML (PROLIA) SQ SCH
[2023-02-10 09:15] VITALS: BP 152/56
== END ==
LOC: SDC 08:56
PROVIDERS: ATTEND Family Medicine
DX: M81.0 Age-related osteoporosis without current pathological fracture (principal)
CPT/HCPCS: 96372

== ENCOUNTER → 2023-02-10 | Outpatient (CLI) | payer MEDICARE, OTHER ==
[~2023-02-10] MED LIST changes: -DENOSUMAB 60 MG/1 ML (PROLIA) SQ SCH
--- NOTE | 2023-02-10 11:07 | Diagnostic Imaging Report ---
INDICATION: Postmenopausal screening COMPARISON: 03/27/2020 FINDINGS: AP Spine L1-L4: [BMD (g/cm2): 0.836] [T-Score: -3.0] [Z-Score: -1.7] [BMD Previous: 0.939] [BMD % Change: -11.0*] LT Hip Neck: [BMD (g/cm2): 0.720] [T-Score: -2.3] [Z-Score: -0.8] LT Hip Total: [BMD (g/cm2):0.674] [T-Score:-2.6] [Z-Score: -1.4] [BMD Previous: 0.700] [BMD % Change: -3.7] RT Hip Neck: [BMD (g/cm2):0.682] [T-Score:-2.6] [Z-Score:-1.1] RT Hip Total: [BMD (g/cm2):0.656] [T-score:-2.8] [Z-Score:-1.5] [BMD Previous:0.696] [BMD % Change:-5.7*] *Indicates significant change from prior examination based on 95% confidence level. World Health Organization criteria for BMD interpretation classify patients as Normal (T-score at or above -1.0), Osteopenic (T-score between -1.0 and -2.5) or Osteoporotic (T-score at or below -2.5). LIMITATIONS AND MODIFICATION: None. FRACTURE RISK (FRAX SCORE): The ten year probability of (%): Major Osteoporotic Fracture: [15.6] Hip Fracture: [4.2] IMPRESSION: 1. Osteoporosis. 2. Bone mineral density has decreased by a statistically significant amount, as detailed above. 3. See below National Osteoporosis Foundation guidelines on when to potentially initiate pharmacologic therapy. Based on the National Osteoporosis Foundation Guidelines, pharmacologic treatment should be initiated in any of the following, unless clinical conditions suggest otherwise: * Any patient with prior fragility fracture of the hip or vertebrae. A spine fracture indicates 5X risk for subsequent spine fracture and 2X risk for subsequent hip fracture. * Osteoporosis (T-score <-2.5). * Postmenopausal women and men age 50 and older with low bone mass/osteopenia (T-score between -1.0 and -2.5) by DXA and 10-year major osteoporotic fracture greater than 20% or a 10-year probability of hip fracture greater than 3%. These fracture risks are supplied above in the FRAX score, if applicable. * Clinician judgement and/or patient preferences may indicate treatment for people with 10-year fracture probabilities above or below these levels. Dictated by: Dictated on workstation # [id number]
--- NOTE | 2023-02-10 14:54 | Diagnostic Imaging Report ---
Indication: Routine screening. Comparison is made with prior mammograms from 02/18/2022 and 11/28/2020. 2-D and 3-D bilateral screening mammography was performed with CAD. Scattered fibroglandular densities are identified bilaterally. Benign-appearing nodules in the left breast appear stable. No new mass or malignant-appearing microcalcifications are seen. There are benign calcifications bilaterally. Axillae are unremarkable. IMPRESSION: BI-RADS Category 2 No mammographic features suspicious for malignancy are identified. ACR BI-RADS Category 2: Benign findings. Result letter will be mailed to the patient. Note: At least 10% of breast cancer is not imaged by mammography. Dictated by: Dictated on workstation # [id number]
== END ==
LOC: RAD 09:33
PROVIDERS: ATTEND Family Medicine
DX: Z12.31 Encounter for screening mammogram for malignant neoplasm of breast (principal); M81.0 Age-related osteoporosis without current pathological fracture
CPT/HCPCS: 77063; 77067; 77080